=== PATIENT | male | born 1950 | race Caucasian/White ===

== ENCOUNTER 2021-01-19 11:43 | Outpatient (CLI) | payer MEDICARE, OTHER, SELFPAY ==
[2021-01-19 19:39] LABS: Basophils Absolute Auto 0.1 K/mm3 (0.0-0.1); Basophils Percent Auto 0.9 % (0.2-1.2); Eosinophils Absolute Auto 0.4 K/mm3 (0-0.3); Eosinophils Percent Auto 4.8 % (0-4.4); Hematocrit 53.7 % (42.0-52.0); Hemoglobin 18.1 g/dL (14.0-18.0); Immature Granulocyte Absolute 0.03 K/mm3 (0.00-0.031); Immature Granulocyte Percent A 0.3 % (0-0.5); Lymphocytes Absolute Auto 2.26 K/mm3 (0.9-3.2); Lymphocytes Percent Auto 25.7 % (18.3-44.2); Mean Corpuscular HGB Conc 33.7 g/dl (32-36); Mean Corpuscular Hemoglobin 32.1 pg (26-34); Mean Corpuscular Volume 95.2 fl (80-100); Mean Platelet Volume 10.1 fl (7.4-10.4); Monocytes Absolute Auto 1.2 K/mm3 (0.1-0.6); Monocytes Percent Auto 13.2 % (2.6-8.5); Neutrophils Absolute Auto 4.8 K/mm3 (1.3-6.7); Neutrophils Percent Auto 55.1 % (45.5-73.1); Platelet Count Result 290 k/mm3 (150-375); Red Blood Count 5.64 M/mm3 (4.6-6.20); Red Cell Distribution Width 12.9 % (11.5-14.5); White Blood Count 8.8 K/mm3 (4.5-10.0)
[2021-01-19 19:50] LABS: Alanine Aminotransferase 49 U/L (4-50); Albumin Level 4.9 g/dL (3.5-5.1); Alkaline Phosphatase 59 U/L (38-126); Anion Gap 11 mmol/L (8-16); Aspartate Amino Transferase 38 U/L (17-59); Bilirubin,Total 0.7 mg/dL (0.2-1.3); Blood Urea Nitrogen 19 mg/dL (9-20); Calcium 10.7 mg/dL (8.4-10.2); Carbon Dioxide 27 mmol/L (22-30); Chloride 101 mmol/L (98-107); Cholesterol 231 mg/dL (0-200); Estimated Glomerular Filt Rate > 60; Glucose 87 mg/dL (65-110); HDL Direct 42 mg/dL; Potassium 4.5 mmol/L (3.4-5.0); Sodium 139 mmol/L (137-145); Triglycerides 256 mg/dL (<150)
[2021-01-19 20:01] LABS: LDL Cholesterol Direct 144 mg/dL
[2021-01-19 21:58] LABS: Prostate Specific Antigen 1.8 ng/mL (< OR = 4.0)
== END 2021-01-19 11:44 | disposition home or self-care (01) ==
LOC: ANHBWCLAB 11:45
PROVIDERS: PCP Family Medicine; Visit Provider Family Medicine
DX: E78.5 Hyperlipidemia, unspecified (principal); D75.1 Secondary polycythemia; G47.30 Sleep apnea, unspecified; I12.9 Hypertensive chronic kidney disease with stage 1 through stage 4 chronic kidney disease, or unspecified chronic kidney disease; Z12.5 Encounter for screening for malignant neoplasm of prostate; E78.1 Pure hyperglyceridemia
CPT/HCPCS: 36415; 80053; 80061; 84153; 85025; G0103

== ENCOUNTER 2021-02-08 13:51 | Outpatient (CLI) | payer MEDICARE, OTHER, SELFPAY ==
--- NOTE | ~2021-02-08 | US_ITS ---
US arterial ankle brachial ind INDICATION: Peripheral vascular disease. TECHNIQUE: Segmental pressures and plethysmographic and Doppler waveforms of the brachial and lower e xtremity arteries were obtained. COMPARISON: None. FINDINGS: Right and left brachial artery pressures of 158 mm Hg and 150 to mm Hg, respectively, are concordant (normal difference <= 30 mmHg). The right ankle-brachial index (KESHA) is 1 (normal >= 0.9-1.0). The right great toe-brachial index (TB I) is 0.65 (normal >= 0.60). The left KESHA is 0.99. The left TBI is 0.54. IMPRESSION: 1. Mildly diminished left toe brachial index, consistent with peripheral arterial disease. 2: Normal right ankle and toe brachial indices. Reviewed, dictated and finalized at location A. RINARY MICROBIOLOGIST IMPRESSION: 1. Mildly diminished left toe brachial index, consistent with peripheral arteri al disease. 2: Normal right ankle and toe brachial indices.
== END 2021-02-08 13:52 | disposition home or self-care (01) ==
LOC: ANHIMG 13:54
PROVIDERS: PCP Family Medicine; Visit Provider Family Medicine
DX: I73.9 Peripheral vascular disease, unspecified (principal)
CPT/HCPCS: 93922

== ENCOUNTER 2021-07-20 11:42 | Outpatient (CLI) | payer MEDICARE, OTHER, SELFPAY ==
[2021-07-20 19:42] LABS: Basophils Absolute Auto 0.1 K/mm3 (0.0-0.1); Basophils Percent Auto 0.7 % (0.2-1.2); Eosinophils Absolute Auto 0.3 K/mm3 (0-0.3); Eosinophils Percent Auto 3.3 % (0-4.4); Hematocrit 52.8 % (42.0-52.0); Hemoglobin 18.2 g/dL (14.0-18.0); Immature Granulocyte Absolute 0.04 K/mm3 (0.00-0.031); Immature Granulocyte Percent A 0.4 % (0-0.5); Lymphocytes Absolute Auto 2.36 K/mm3 (0.9-3.2); Lymphocytes Percent Auto 24.4 % (18.3-44.2); Mean Corpuscular HGB Conc 34.5 g/dl (32-36); Mean Corpuscular Hemoglobin 31.9 pg (26-34); Mean Corpuscular Volume 92.5 fl (80-100); Mean Platelet Volume 10.3 fl (7.4-10.4); Monocytes Absolute Auto 1.2 K/mm3 (0.1-0.6); Monocytes Percent Auto 12.4 % (2.6-8.5); Neutrophils Absolute Auto 5.7 K/mm3 (1.3-6.7); Neutrophils Percent Auto 58.8 % (45.5-73.1); Platelet Count Result 281 k/mm3 (150-375); Red Blood Count 5.71 M/mm3 (4.6-6.20); Red Cell Distribution Width 12.6 % (11.5-14.5); White Blood Count 9.7 K/mm3 (4.5-10.0)
[2021-07-20 19:58] LABS: Anion Gap 8 mmol/L (8-16); Blood Urea Nitrogen 21 mg/dL (9-20); Carbon Dioxide 26 mmol/L (22-30); Chloride 104 mmol/L (98-107); Estimated Glomerular Filt Rate > 60; Glucose 85 mg/dL (65-110); Potassium 4.3 mmol/L (3.4-5.0); Sodium 138 mmol/L (137-145)
[2021-07-22 11:14] LABS: Erythropoietin (EPO) 6.4 mIU/mL (2.6-18.5)
[2021-07-23 07:33] LABS: Ionized Calcium 5.3 mg/dL (4.8-5.6)
[2021-07-27 14:08] LABS: Parathyroid Hormone Related Pr 13 pg/mL (11-20)
== END 2021-07-20 11:43 | disposition home or self-care (01) ==
LOC: ANHBWCLAB 11:45
PROVIDERS: PCP Family Medicine; Visit Provider Family Medicine
DX: E83.52 Hypercalcemia (principal); R79.89 Other specified abnormal findings of blood chemistry; D75.1 Secondary polycythemia; E78.5 Hyperlipidemia, unspecified
CPT/HCPCS: 36415; 80048; 82306; 82330; 82668; 83519; 85025

== ENCOUNTER 2021-10-26 14:42 | Outpatient (CLI) | payer MEDICARE, OTHER, SELFPAY ==
[2021-10-26 18:35] LABS: Basophils Absolute Auto 0.1 K/mm3 (0.0-0.1); Basophils Percent Auto 0.6 % (0.2-1.2); Eosinophils Absolute Auto 0.3 K/mm3 (0-0.3); Eosinophils Percent Auto 3.4 % (0-4.4); Hematocrit 50.8 % (42.0-52.0); Hemoglobin 16.6 g/dL (14.0-18.0); Immature Granulocyte Absolute 0.04 K/mm3 (0.00-0.031); Immature Granulocyte Percent A 0.5 % (0-0.5); Lymphocytes Absolute Auto 1.88 K/mm3 (0.9-3.2); Lymphocytes Percent Auto 22.4 % (18.3-44.2); Mean Corpuscular HGB Conc 32.7 g/dl (32-36); Mean Corpuscular Volume 94.8 fl (80-100); Mean Platelet Volume 9.9 fl (7.4-10.4); Monocytes Absolute Auto 0.8 K/mm3 (0.1-0.6); Monocytes Percent Auto 9.9 % (2.6-8.5); Neutrophils Absolute Auto 5.3 K/mm3 (1.3-6.7); Neutrophils Percent Auto 63.2 % (45.5-73.1); Platelet Count Result 258 k/mm3 (150-375); Red Blood Count 5.36 M/mm3 (4.6-6.20); Red Cell Distribution Width 12.8 % (11.5-14.5); White Blood Count 8.4 K/mm3 (4.5-10.0)
== END 2021-10-26 14:43 | disposition home or self-care (01) ==
PROVIDERS: PCP Family Medicine; Visit Provider Family Medicine
DX: D75.1 Secondary polycythemia (principal)
CPT/HCPCS: 36415; 85025

== ENCOUNTER 2022-02-19 09:56 | Emergency (ER) | payer MEDICARE, OTHER, SELFPAY ==
[2022-02-19 10:08] VITALS: BP 154/90; PULSE 88; RESP 20; TEMP 36.7; O2SAT 97
--- NOTE | 2022-02-19 10:44 | ED.EYEPROB ---
HPI - Eye Problem General Chief complaint: Eye Problems Stated complaint: Eye Problem Related Data Home Medications Medication Instructions Recorded Confirmed omega-3 fatty acids 500 mg capsule 500 mg DAILY 02/19/22 02/19/22 Allergies Allergy/AdvReac Type Severity Reaction Status Date / Time No Known Allergies Allergy Verified 02/19/22 10:20 Review of Systems Review of Systems: Patient presents with redness to his right eye. Patient states he was exposed to pinkeye by 1 of his grandchildren. Patient states the eye was matted shut this morning and itchy. No injury to eye no vision problems. Patient does not were contacts. Constitutional: Comments: CONSTITUTIONAL: Denies fever, chills, or sweats. EYES: Denies visual changes, redness, or discharge. ENT: Denies rhinorrhea, congestion, sore throat, or otalgia. CARDIOVASCULAR: Denies chest pain, palpitations, or edema. RESPIRATORY: Denies cough or dyspnea. GASTROINTESTINAL: Denies abdominal pain, nausea, vomiting, or diarrhea. GENITOURINARY: Denies dysuria or hematuria. SKIN: Denies rash or itching. MUSCULOSKELETAL: Denies back pain, joint pain, or myalgia. NEUROLOGIC: Denies headache, numbness, or weakness. PSYCHIATRIC: Denies anxiety or depression. [facility] Past Medical History Medical History (Updated 02/19/22 @ 10:50 by ROSENDA Orantes) H/O cataract Surgical History Surgical History (Updated 01/19/21 @ 10:51 by Jp Rush MD) History of back surgery Family History Family History Father Family history of lung cancer Social History Social History Smoking packs per day: 0.5 Smoking cigarettes per day: 10.0 Years smoked: 50 Smoking pack-years: 25.00 Smoking status: Heavy tobacco smoker Second hand tobacco smoke exposure: No Alcohol intake: never Substance use: never Comments At time of signature, agree with nursing past medical, surgical, social and family history. There is no relevant family history pertinent to the presenting complaint Exam Narrative: GENERAL: Well-appearing, well-nourished, and in no acute distress. HEAD: Normocephalic, atraumatic. EYES: PERRLA and EOMI. Conjunctivae with redness and watery in mild drainage to corner of right eye. Consistent with conjunctivitis. ENT: Nares clear, no rhinorrhea or epistaxis. Mucous membranes moist. NECK: Supple. CHEST: Clear to auscultation. No respiratory distress. HEART: Regular rate and rhythm. No murmur heard. Normal peripheral pulses. ABDOMEN: Soft, nontender, nondistended, normal active bowel sounds. EXTREMITIES: Normal range of motion. No edema. SKIN: Warm, dry, no rash. NEURO: No focal deficits. Alert and oriented x3. [place] Coma Scale Eye Opening: Spontaneous 4 [place] Coma Scale Motor: Obeys Commands 6 [place] Coma Scale Verbal: Oriented 5 [place] Coma Scale Total 15 Course Course Level of Care: Express Care Visit Vital Signs Vital signs: Vital Signs Temperature 36.7 C 02/19/22 10:08 Pulse Rate 88 02/19/22 10:08 Respiratory Rate 20 02/19/22 10:08 Blood Pressure 154/90 H 02/19/22 10:08 Pulse Oximetry 97 02/19/22 10:08 Oxygen Delivery Room Air 02/19/22 10:08 Temperature 36.7 C 02/19/22 10:08 Pulse Rate 88 02/19/22 10:08 Respiratory Rate 20 02/19/22 10:08 Blood Pressure 154/90 H 02/19/22 10:08 Pulse Oximetry 97 02/19/22 10:08 Oxygen Delivery Room Air 02/19/22 10:08 Please CHARLOTTE schedule a followup visit with your personal physician for further evaluation and treatment. Including recheck and discussion of your blood pressure. If your symptoms persist, change or worsen significantly before you can contact your personal physician then please, without delay, go to the emergency department for further evaluation Discharge Plan Discharge Clinical Impression: Bacterial conjunctivitis Patient Disposi
== END 2022-02-19 10:58 | disposition home or self-care (01) ==
PROVIDERS: Emergency Provider Nurse Practitioner Family; PCP Family Medicine
DX: H10.9 Unspecified conjunctivitis (principal); F17.219 Nicotine dependence, cigarettes, with unspecified nicotine-induced disorders; H26.9 Unspecified cataract
CPT/HCPCS: 99213; G0463

== ENCOUNTER 2022-04-11 10:38 | Outpatient (CLI) | payer MEDICARE, OTHER, SELFPAY ==
[2022-04-11 21:33] LABS: Basophils Absolute Auto 0.1 K/mm3 (0.0-0.1); Basophils Percent Auto 0.8 % (0.2-1.2); Eosinophils Absolute Auto 0.3 K/mm3 (0-0.3); Eosinophils Percent Auto 3.3 % (0-4.4); Hematocrit 50.3 % (42.0-52.0); Hemoglobin 17.2 g/dL (14.0-18.0); Immature Granulocyte Absolute 0.03 K/mm3 (0.00-0.031); Immature Granulocyte Percent A 0.3 % (0-0.5); Lymphocytes Absolute Auto 2.21 K/mm3 (0.9-3.2); Lymphocytes Percent Auto 25.1 % (18.3-44.2); Mean Corpuscular HGB Conc 34.2 g/dl (32-36); Mean Corpuscular Hemoglobin 31.8 pg (26-34); Mean Platelet Volume 10.2 fl (7.4-10.4); Monocytes Absolute Auto 1.1 K/mm3 (0.1-0.6); Monocytes Percent Auto 12.4 % (2.6-8.5); Neutrophils Absolute Auto 5.1 K/mm3 (1.3-6.7); Neutrophils Percent Auto 58.1 % (45.5-73.1); Platelet Count Result 297 k/mm3 (150-375); Red Blood Count 5.41 M/mm3 (4.6-6.20); Red Cell Distribution Width 12.6 % (11.5-14.5); White Blood Count 8.8 K/mm3 (4.5-10.0)
[2022-04-11 21:34] LABS: Alanine Aminotransferase 56 U/L (6-50); Albumin Level 4.7 g/dL (3.5-5.1); Alkaline Phosphatase 66 U/L (38-126); Anion Gap 8 mmol/L (8-16); Aspartate Amino Transferase 65 U/L (17-59); Bilirubin,Total 0.7 mg/dL (0.2-1.3); Blood Urea Nitrogen 19 mg/dL (9-20); Calcium 10.2 mg/dL (8.4-10.2); Carbon Dioxide 31 mmol/L (22-30); Chloride 102 mmol/L (98-107); Cholesterol 135 mg/dL (0-200); Estimated Glomerular Filt Rate > 60; Glucose 126 mg/dL (65-110); HDL Direct 33 mg/dL; Potassium 4.3 mmol/L (3.4-5.0); Sodium 141 mmol/L (137-145); Triglycerides 292 mg/dL (<150)
[2022-04-11 21:45] LABS: LDL Cholesterol Direct 59 mg/dL
[2022-04-11 22:03] LABS: Prostate Specific Antigen 1.5 ng/mL (< OR = 4.0)
== END 2022-04-11 10:39 | disposition home or self-care (01) ==
PROVIDERS: PCP Family Medicine; Visit Provider Family Medicine
DX: G47.30 Sleep apnea, unspecified (principal); D75.1 Secondary polycythemia; E78.1 Pure hyperglyceridemia; E83.52 Hypercalcemia; R79.89 Other specified abnormal findings of blood chemistry; L57.0 Actinic keratosis; G62.9 Polyneuropathy, unspecified; I12.9 Hypertensive chronic kidney disease with stage 1 through stage 4 chronic kidney disease, or unspecified chronic kidney disease; Z12.5 Encounter for screening for malignant neoplasm of prostate; N18.9 Chronic kidney disease, unspecified
CPT/HCPCS: 36415; 80053; 80061; 84153; 85025; G0103

== ENCOUNTER 2022-10-18 11:07 | Outpatient (CLI) | payer MEDICARE, SELFPAY ==
[2022-10-18 20:15] LABS: Alanine Aminotransferase 58 U/L (6-50); Albumin Level 4.4 g/dL (3.5-5.1); Alkaline Phosphatase 55 U/L (38-126); Anion Gap 6 mmol/L (8-16); Aspartate Amino Transferase 92 U/L (17-59); Bilirubin,Total 0.6 mg/dL (0.2-1.3); Blood Urea Nitrogen 21 mg/dL (9-20); Carbon Dioxide 35 mmol/L (22-30); Chloride 99 mmol/L (98-107); Cholesterol 137 mg/dL (0-200); Estimated Glomerular Filt Rate > 60; Glucose 158 mg/dL (65-110); HDL Direct 32 mg/dL; Potassium 4.3 mmol/L (3.4-5.0); Sodium 140 mmol/L (137-145); Triglycerides 250 mg/dL (<150)
[2022-10-18 20:26] LABS: LDL Cholesterol Direct 61 mg/dL
== END 2022-10-18 11:08 | disposition home or self-care (01) ==
LOC: ANHBWCLAB 11:08
PROVIDERS: PCP Nurse Practitioner Adult Health; Visit Provider Nurse Practitioner Adult Health
DX: R74.01 Elevation of levels of liver transaminase levels (principal); I10 Essential (primary) hypertension
CPT/HCPCS: 36415; 80048; 80061; 80076

== ENCOUNTER 2023-10-24 09:55 | Outpatient (CLI) | payer MEDICARE, OTHER, SELFPAY ==
--- NOTE | ~2023-10-24 | XR_ITS ---
XR hip RT min 2V 10/24/2023 10:18 Indication: Right hip pain Procedure: 2 views right hip Comparison: No prior studies for comparison. Findings: Mild osteoarthritis of the right hip. No fracture or traumatic malalignment. No significant soft tissue abnormality. No foreign bodies. Impression: 1: Mild osteoarthritis of the right hip. Reviewed, dictated and finalized at location B. Impression: 1: Mild osteoarthritis of the right hip.
[2023-10-24 18:40] LABS: Basophils Absolute Auto 0.1 K/mm3 (0.0-0.1); Basophils Percent Auto 0.6 % (0.2-1.2); Eosinophils Absolute Auto 0.4 K/mm3 (0-0.3); Eosinophils Percent Auto 3.7 % (0-4.4); Hemoglobin 17.7 g/dL (14.0-18.0); Immature Granulocyte Absolute 0.04 K/mm3 (0.00-0.031); Immature Granulocyte Percent A 0.4 % (0-0.5); Lymphocytes Absolute Auto 1.91 K/mm3 (0.9-3.2); Lymphocytes Percent Auto 20.4 % (18.3-44.2); Mean Corpuscular HGB Conc 32.8 g/dl (32-36); Mean Corpuscular Hemoglobin 31.7 pg (26-34); Mean Corpuscular Volume 96.6 fl (80-100); Mean Platelet Volume 10.1 fl (7.4-10.4); Monocytes Absolute Auto 1.1 K/mm3 (0.1-0.6); Neutrophils Absolute Auto 5.9 K/mm3 (1.3-6.7); Neutrophils Percent Auto 62.9 % (45.5-73.1); Platelet Count Result 283 k/mm3 (150-375); Red Blood Count 5.59 M/mm3 (4.6-6.20); Red Cell Distribution Width 13.2 % (11.5-14.5); White Blood Count 9.3 K/mm3 (4.5-10.0)
[2023-10-24 19:07] LABS: Alanine Aminotransferase 52 U/L (6-50); Albumin Level 4.9 g/dL (3.5-5.1); Alkaline Phosphatase 59 U/L (38-126); Anion Gap 11 mmol/L (4-12); Aspartate Amino Transferase 65 U/L (17-59); Bilirubin,Total 0.7 mg/dL (0.2-1.3); Blood Urea Nitrogen 22 mg/dL (9-20); Calcium 10.4 mg/dL (8.4-10.2); Carbon Dioxide 32 mmol/L (22-30); Chloride 96 mmol/L (98-107); Cholesterol 135 mg/dL (0-200); Estimated Glomerular Filt Rate > 60; Glucose 114 mg/dL (65-110); HDL Direct 35 mg/dL; Magnesium 2.5 mg/dL (1.6-2.3); Potassium 3.9 mmol/L (3.4-5.0); Sodium 139 mmol/L (137-145); Triglycerides 212 mg/dL (<150)
[2023-10-24 19:18] LABS: LDL Cholesterol Direct 62 mg/dL
[2023-10-24 19:37] LABS: Prostate Specific Antigen 1.8 ng/mL (< OR = 4.0)
[2023-10-24 22:50] LABS: Vitamin D 25 Hydroxy 31.8 ng/mL
== END 2023-10-24 09:56 | disposition home or self-care (01) ==
PROVIDERS: PCP Nurse Practitioner Adult Health; Visit Provider Nurse Practitioner Adult Health
DX: M16.11 Unilateral primary osteoarthritis, right hip (principal); R79.89 Other specified abnormal findings of blood chemistry; I10 Essential (primary) hypertension; Z12.5 Encounter for screening for malignant neoplasm of prostate; Z79.899 Other long term (current) drug therapy
CPT/HCPCS: 36415; 73502; 80053; 80061; 82306; 83735; 84153; 84443; 85025; G0103

== ENCOUNTER 2023-11-01 08:53 | Outpatient (CLI) | payer MEDICARE, OTHER, SELFPAY ==
[2023-11-01 20:34] LABS: Anion Gap 15 mmol/L (4-12); Blood Urea Nitrogen 26 mg/dL (9-20); Calcium 9.8 mg/dL (8.4-10.2); Carbon Dioxide 26 mmol/L (22-30); Chloride 99 mmol/L (98-107); Estimated Glomerular Filt Rate > 60; Glucose 93 mg/dL (65-110); Sodium 140 mmol/L (137-145)
== END 2023-11-01 08:54 | disposition home or self-care (01) ==
PROVIDERS: PCP Nurse Practitioner Adult Health; Visit Provider Nurse Practitioner Adult Health
DX: E83.52 Hypercalcemia (principal)
CPT/HCPCS: 36415; 80048

== ENCOUNTER 2023-12-14 10:24 | Outpatient (CLI) | payer MEDICARE, OTHER, SELFPAY ==
--- NOTE | ~2023-12-14 | CT_ITS ---
EXAMINATION: CT abdomen pelvis wo con DATE: 12/14/2023 10:44 INDICATION: Unspecified abdominal pain TECHNIQUE: Computed tomography (CT) of the abdomen and pelvis was performed without intravenous contr ast. Automated exposure control and iterative reconstruction technique were employed. The dose-length product was 832.37 mGy-cm. COMPARISON: None FINDINGS: Lung bases are clear. Heart size is normal. Atherosclerotic coronary artery calcific lesion. No peric ardial or pleural effusion. There are few calcified gallstones within the normal-appearing gallbladde r. There are few subcentimeter low-attenuation lesions in the left hepatic lobe which in the absence of known malignancy are most consistent with hepatic cysts or hemangiomas. No intra or extra hepatic ductal or ductal dilation. There are few scattered tiny dystrophic pancreatic prior small calcified l esions consistent with sequela of chronic pancreatitis. Spleen, bilateral adrenal glands are normal. Bilateral nephrolithiasis with 2 mm stone at the upper pole the left kidney and a couple punctate, <1 mm stones at the upper pole of the right kidney. No ureteral stones or hydronephrosis. Bladder is no rmal. Prostatomegaly measuring 5.1 x 4.2 cm. Bilateral fat-containing inguinal hernias. There is mode rate scattered colonic diverticulosis with no adjacent comparison to suggest diverticulitis. Small sameera wel and appendix are normal. No free intraperitoneal gas or fluid. No pathologically enlarged abdomin al or pelvic lymphadenopathy. Mild lumbar levocurvature with moderate lumbar and lower thoracic spond ylosis. IMPRESSION: 1. A lithiasis. 2. Nonobstructing bilateral nephrolithiasis. 3. Moderate diverticulosis. 4. Bilateral fat-containing inguinal hernias. 5. Prostatomegaly. Reviewed, dictated and finalized at location B.
== END 2023-12-14 10:25 | disposition home or self-care (01) ==
PROVIDERS: PCP Nurse Practitioner Adult Health; Visit Provider Nurse Practitioner Adult Health
DX: N20.0 Calculus of kidney (principal); K57.30 Diverticulosis of large intestine without perforation or abscess without bleeding; K40.20 Bilateral inguinal hernia, without obstruction or gangrene, not specified as recurrent; N40.0 Benign prostatic hyperplasia without lower urinary tract symptoms
CPT/HCPCS: 36415; 74176; 80053; 82150; 83690; 85027

== ENCOUNTER 2023-12-14 12:10 | Outpatient (CLI) | payer MEDICARE, OTHER, SELFPAY ==
[2023-12-14 19:03] LABS: Hematocrit 53.9 % (42.0-52.0); Hemoglobin 17.9 g/dL (14.0-18.0); Mean Corpuscular HGB Conc 33.2 g/dl (32-36); Mean Corpuscular Hemoglobin 31.9 pg (26-34); Mean Corpuscular Volume 96.1 fl (80-100); Mean Platelet Volume 10.5 fl (7.4-10.4); Platelet Count Result 251 k/mm3 (150-375); Red Blood Count 5.61 M/mm3 (4.6-6.20); Red Cell Distribution Width 13.2 % (11.5-14.5); White Blood Count 9.5 K/mm3 (4.5-10.0)
[2023-12-14 19:24] LABS: Alanine Aminotransferase 55 U/L (6-50); Albumin Level 4.7 g/dL (3.5-5.1); Alkaline Phosphatase 58 U/L (38-126); Amylase 127 U/L (30-110); Anion Gap 10 mmol/L (4-12); Aspartate Amino Transferase 98 U/L (17-59); Bilirubin,Total 0.8 mg/dL (0.2-1.3); Blood Urea Nitrogen 20 mg/dL (9-20); Calcium 10.3 mg/dL (8.4-10.2); Carbon Dioxide 32 mmol/L (22-30); Chloride 100 mmol/L (98-107); Estimated Glomerular Filt Rate > 60; Glucose 79 mg/dL (65-110); Lipase 70 U/L (23-300); Potassium 4.5 mmol/L (3.4-5.0); Sodium 142 mmol/L (137-145)
== END 2023-12-14 12:11 | disposition home or self-care (01) ==
LOC: ANHBWCLAB 12:13
PROVIDERS: PCP Nurse Practitioner Adult Health; Visit Provider Nurse Practitioner Adult Health
DX: R10.9 Unspecified abdominal pain (principal)
CPT/HCPCS: 36415; 80053; 82150; 83690; 85027

== ENCOUNTER 2024-01-08 01:32 | Day surgery (SDC) | payer MEDICARE, OTHER, SELFPAY ==
[2023-12-29 15:28] VITALS: BMI 31.1
[2024-01-08 10:10] VITALS: BP 158/98; PULSE 69; RESP 18; TEMP 36; O2SAT 98; BMI 30.5
--- NOTE | 2024-01-08 10:27 | WPDANESEPPF ---
Anes - Initial Pre Proc Eval Procedure: Operation Date: 01/08/24 11:30 Proposed Procedures p Esophagogastroduodenoscopy - Braxton Freire MD Date/Time: 01/08/24 10:27 Surgeon: Braxton Freire MD Pre Op Diagnosis: epigastric pain, rt upper quadrant pain Patient Data Age: 73 Gender: M Height: 1.78 m Weight: 96.5 kg Last Vital Signs Temp 36.0 C L 01/08/24 10:10 Pulse 69 01/08/24 10:10 Resp 18 01/08/24 10:10 BP 158/98 H 01/08/24 10:10 Pulse Ox 98 01/08/24 10:10 O2 Del Method Room Air 01/08/24 10:10 Allergies Allergy/AdvReac Type Severity Reaction Status Date / Time No Known Allergies Allergy Verified 01/08/24 10:20 Home Medications Medication Instructions Recorded Confirmed Type omega-3 fatty acids 500 mg capsule 500 mg DAILY 02/19/22 01/08/24 History hydrochlorothiazide 25 mg tablet 25 mg PO DAILY #90 tabs 07/25/23 01/08/24 Rx atorvastatin 20 mg tablet 20 mg PO DAILY #90 tabs 10/31/23 01/08/24 Rx carvedilol 6.25 mg tablet (Coreg) 6.25 mg PO Q12H #180 tabs 10/31/23 01/08/24 Rx omeprazole 40 mg capsule,delayed 40 mg PO DAILY 4 weeks #28 caps 12/26/23 01/08/24 Rx release Patient hx anesthesia problems: none Family hx anesthesia problems: none Results Review: All pre-operative results and documents have been reviewed as part of the pre-operative evaluation. [facility] Past Medical History Medical History Chronic pancreatitis Encounter for long-term (current) use of medications H/O cataract Liver lesion Surgical History Surgical History History of back surgery Family History Family History Father Family history of lung cancer Social History Social History Smoking packs per day: 0.5 Smoking cigarettes per day: 10.0 Years smoked: 50 Smoking pack-years: 25.00 Smoking status: Current every day smoker Tobacco type: cigarettes Second hand tobacco smoke exposure: No Alcohol intake: never Substance use: never Substance use type: does not use Lack of Transportation: No Lack of Food: Never True Current Housing: I Have Housing Concerned About Future Housing: No Difficulty Paying Gas/Electric Bills: No Difficulty Paying for Meds: No Currently Unemployed: No Education: Trade/Vocational Certificate Difficulty w/ Childcare or Family Care: No Living arrangements: with family Anes - Eval Final PreProcedure Day of Procedure 01/08/24 10:27 Patient weight: obese Heart: regular rate and rhythm Lungs: clear to auscultation Airway: Mallampati scale class II Neurological: alert and oriented Last oral intake: >/= 8 hours ASA classification: III Emergent: no Anesthetic plan: proceed Anesthesia type and monitoring: general GIVS and standard monitoring Results Review: All pre-operative results and documents have been reviewed as part of the pre-operative evaluation. Informed Consent: The patient's anesthetic plan and its attendant risks and benefits were discussed with the patient/family/POA. Questions were solicited and answers provided to the satisfaction of the patient/family/POA.
[2024-01-08] MEDS: LACTATED RINGERS 1,000 ML 150 ML IV CONT (10:33)
--- NOTE | 2024-01-08 11:22 | PM.IMHP ---
H&P: HPI History of Present Illness Date/Time: 01/08/24 11:22 Chief Complaint: epigastric pain Narrative: this patient has been evaluated for the presence of chronic, dull, ill-defined epigastric pain. There are no other findings explaining abdominal pain based on previous CT scans. He is due for EGD to rule out gastroduodenal pathology. Of note, he has never had an EGD before. Review of Systems Review of Systems: All systems reviewed & are unremarkable except as noted in HPI and below PMFSH Past Medical History Medical History Chronic pancreatitis Encounter for long-term (current) use of medications H/O cataract Liver lesion Surgical History Surgical History History of back surgery Family History Family History Father Family history of lung cancer Social History Social History Smoking packs per day: 0.5 Smoking cigarettes per day: 10.0 Years smoked: 50 Smoking pack-years: 25.00 Smoking status: Current every day smoker Tobacco type: cigarettes Second hand tobacco smoke exposure: No Alcohol intake: never Substance use: never Substance use type: does not use Lack of Transportation: No Lack of Food: Never True Current Housing: I Have Housing Concerned About Future Housing: No Difficulty Paying Gas/Electric Bills: No Difficulty Paying for Meds: No Currently Unemployed: No Education: Trade/Vocational Certificate Difficulty w/ Childcare or Family Care: No Living arrangements: with family Meds Home Medications and Allergies Home Medications Medication Instructions Recorded Confirmed Type omega-3 fatty acids 500 mg capsule 500 mg DAILY 02/19/22 01/08/24 History hydrochlorothiazide 25 mg tablet 25 mg PO DAILY #90 tabs 07/25/23 01/08/24 Rx atorvastatin 20 mg tablet 20 mg PO DAILY #90 tabs 10/31/23 01/08/24 Rx carvedilol 6.25 mg tablet (Coreg) 6.25 mg PO Q12H #180 tabs 10/31/23 01/08/24 Rx omeprazole 40 mg capsule,delayed 40 mg PO DAILY 4 weeks #28 caps 12/26/23 01/08/24 Rx release Allergies Allergy/AdvReac Type Severity Reaction Status Date / Time No Known Allergies Allergy Verified 01/08/24 10:20 Vital Signs Vital Signs - 24 hr 01/08/24 10:10 Temperature 96.8 F L Pulse Rate 69 Respiratory Rate 18 Blood Pressure 158/98 H Pulse Oximetry 98 Oxygen Delivery Room Air Assessment and Plan Assessment and plan (1) Abdominal pain: Code(s): R10.9 - Unspecified abdominal pain Status: Acute Plan Patient deemed a good candidate for EGD, will proceed.
[2024-01-08 11:43] VITALS: BP 102/65; PULSE 69; RESP 19; O2SAT 97
[2024-01-08 11:53] VITALS: BP 111/57; PULSE 72; RESP 25; O2SAT 97
[2024-01-08 12:03] VITALS: BP 114/78; PULSE 62; RESP 16; O2SAT 99
== END 2024-01-08 12:17 | disposition home or self-care (01) ==
PROVIDERS: PCP Nurse Practitioner Adult Health; Referring Provider Nurse Practitioner Family; Visit Provider Internal Medicine Gastroenterology
PROC: 0DJ08ZZ Inspection of Upper Intestinal Tract, Via Natural or Artificial Opening Endoscopic (ICD-10-PCS; CPT 43235; principal; 2024-01-08 11:30)
DX: K29.80 Duodenitis without bleeding (principal); K29.30 Chronic superficial gastritis without bleeding; K86.1 Other chronic pancreatitis; F17.210 Nicotine dependence, cigarettes, uncomplicated; E66.9 Obesity, unspecified; Z68.30 Body mass index [BMI] 30.0-30.9, adult; Z98.890 Other specified postprocedural states; Z98.1 Arthrodesis status; Z80.1 Family history of malignant neoplasm of trachea, bronchus and lung
CPT/HCPCS: 43239; 88305; J2003; J2704; J7120

== ENCOUNTER 2024-01-26 09:57 | Emergency (ER) | payer MEDICARE, OTHER, SELFPAY ==
[2024-01-26 10:14] VITALS: BP 143/92; PULSE 69; RESP 16; TEMP 36.2; O2SAT 98
[2024-01-26 10:32] VITALS: BP 189/97; PULSE 67; RESP 11; O2SAT 99
--- NOTE | 2024-01-26 11:12 | ED.BACK ---
HPI - Back Pain/Injury General Chief Complaint: Back Pain/Injury Stated Complaint: back, left leg pain Time Seen by Provider: 01/26/24 11:10 Source: patient and family () Mode of arrival: ambulatory Limitations: no limitations History of Present Illness HPI Narrative: Patient presents with back pain radiating into his left buttock and left leg to the knee. Pain of 2 weeks duration. No injury or trauma. No paresthesias. This has never happened before. Patient's pain was 10/10 in severity yesterday but states it is currently 3/10. Although he felt better today, his encouraged him to come to the ED. He has been ambulating using crutches to help alleviate the pain and also tried some yoga exercises his friend recommended. He has a history of neuropathy for which he had been prescribed gabapentin previously but had stopped taking it because it made him woozy and tired. However, when the pain started 2 weeks ago he started taking this medication again. Hx cervical spine issues. No bowel or bladder incontinence. No saddle anesthesia. Denies IVDU. He states apprxoimately 2 weeks ago he had some upper abdominal pain/RUQ pain like a muscle ache after doing sit ups. He had an EGD performed and was also diagnosed with gallstones and kidney stone but otherwise he denies any continuing abdominal pain over the past week. Not chronically on steroids and no history of cancer. Related Data Home Medications Medication Instructions Recorded Confirmed omega-3 fatty acids 500 mg capsule 500 mg DAILY 02/19/22 01/08/24 Allergies Allergy/AdvReac Type Severity Reaction Status Date / Time No Known Allergies Allergy Verified 01/26/24 10:32 [facility] Past Medical History Medical History Chronic pancreatitis Encounter for long-term (current) use of medications Gallstones H/O cataract Kidney stone Liver lesion Surgical History Surgical History History of back surgery cervical spine History of esophagogastroduodenoscopy (EGD) January 2024 Family History Family History Father Family history of lung cancer Social History Social History (Updated 01/27/24 @ 09:57 by Anaya Duncan MD) Smoking packs per day: 0.5 Smoking cigarettes per day: 10.0 Years smoked: 50 Smoking pack-years: 25.00 Smoking status: Current every day smoker Tobacco type: cigarettes Second hand tobacco smoke exposure: No Alcohol intake: never Substance use: never Substance use type: does not use Lack of Transportation: No Lack of Food: Never True Current Housing: I Have Housing Concerned About Future Housing: No Difficulty Paying Gas/Electric Bills: No Difficulty Paying for Meds: No Currently Unemployed: No Education: Trade/Vocational Certificate Difficulty w/ Childcare or Family Care: No Living arrangements: with family Additional living arrangements comments: Exam Narrative: GENERAL: Well-appearing, well-nourished, and in no acute distress. HEAD: Normocephalic, atraumatic. EYES: Non injected, non icteric ENT: Nares clear, no rhinorrhea or epistaxis. NECK: Supple. CHEST: Speaking in full sentences. No respiratory distress. HEART: Regular rate and rhythm. . ABDOMEN: Soft, nondistended. EXTREMITIES: Normal range of motion. No lower extremity edema. 5/5 strength with bilateral dosri/plantarflexion, knee flexion/extension, hip flexion, abduction/adduction. Straight leg raise negative bilaterally. BACK: No TTP of thoracic or lumbar cervical spine vertebrae which are midline without bony step offs. No paraspinal tenderness or appreciable spasm. Mild TTP into left buttock. Demonstrates flexion and extension at the waist as well as some rotational movement. SKIN: Warm, dry, no rash. NEURO: No focal deficits. Alert and oriented x3. Symmetric and appropriate bilateral patellar reflexes. Sensation intact and symmetric bilaterally in lower extremities. PSYCH: Normal mood and affect. Pleasant, talkative, engaged in care; jovial. Course Vital Signs Vital signs: Vital Signs Temperature 97.2 F L 01/26/24 10:14 Pulse Rate 69 01/26/24 10:14 Respiratory Rate 16 01/26/24 10:14 Blood Pressure 143/92 H 01/26/24 10:14 Pulse Oximetry 98 01/26/24 10:14 Oxygen Delivery Room Air 01/26/24 10:14 Temperature 97.5 F L 01/26/24 12:42 Pulse Rate 64 01/26/24 12:42 Respiratory Rate 19 01/26/24 12:42 Blood Pressure 141/78 H 01/26/24 12:42 Pulse Oximetry 98 01/26/24 12:42 Oxygen Delivery Room Air 01/26/24 10:14 MDM - Back Pain/Injury MDM Narrative Medical decision making narrative: This is an exceedingly pleasant 73yo male who presents with low back pain radiating into his left leg. In the ED he is afebrile with VS that show mild hypertension. Back has no deformities, external skin changes, or signs of trauma. Curvature is within normal limits. No tenderness is noted on palpation of the spinous processes which are midline. Lumbar paraspinal muscles are not tender under without spasm. Patient demonstrates flexion, extension, and rotation of the lumbar spine. Sensation to the lower extremities is normal bilaterally. Dorsi/plantar flexion is normal bilaterally. Straight leg raise test is negative bilaterally. They do not have any other red flags for fracture, malignancy, infection (e.g. spinal epidural abscess), or aortic/vascular: No trauma, not on chronic steroids, no cancer, no fever, IV drug use, HIV, immunosuppression, abdominal pain, tearing pain, syncope, or urinary symptoms. Given this, will defer further imaging at this time. Patient's symptoms sound classically like sciatia. A [place] tablet had been ordered but patient states his pain was 3/10 and he politely declined. However, upon walking to the bathroom just prior to discharge, he did tell the nurse that the pain was flaring again he would like at this time. Re-ordered. Discharged in stable condition after discussing multimodal pain management strategy and follow up with PCP. Differential Diagnosis Differential diagnosis: Likely lumbar radiculopathy, sciatica and strain of lumbar region Discharge Plan Discharge Clinical Impression: Sciatic pain Patient Disposition: Home, Self-Care Condition: Stable Instructions: Antibiotic Form, Sciatica (ED), Lower Back Exercises (ED) Additional Instructions: As we discussed, use the multimodal pain management strategies to balance rest with maintaining activity/exercises to not exacerbate/worsen pain. Follow up with your primary care physician. Return to the ER if you have increased pain in your back, you develop lower extremity weakness/numbness/paralysis, you have numbness or tingling in your private parts, or you are unable to control your ability to urinate/stool. Prescriptions: New acetaminophen 500 mg capsule 1,000 mg PO Q6H PRN (Reason: pain) Qty: 20 0RF lidocaine 4 % adhesive patch,medicated 1 patch topical DAILY PRN (Reason: pain) Qty: 5 0RF ibuprofen 600 mg tablet 600 mg PO TID PRN (Reason: pain) Qty: 20 0RF methocarbamol 750 mg tablet 750 mg PO HS Qty: 7 0RF No Action Fish Oil 500 mg Capsule 500 mg DAILY hydrochlorothiazide 25 mg tablet 25 mg PO DAILY Qty: 90 3RF carvedilol [Coreg] 6.25 mg tablet 6.25 mg PO Q12H Qty: 180 1RF Rx Instructions: must administer with a meal/food atorvastatin 20 mg tablet 20 mg PO DAILY Qty: 90 1RF Follow-up/Referrals: Marissa Whyte APRN [Primary Care Provider] - Stand Alone Forms: Work/School Release IP Time of Disposition: 11:50
[2024-01-26 11:30] VITALS: BP 129/73; PULSE 66; RESP 12; O2SAT 100
[2024-01-26] MEDS: HYDROcodone/acetaminophen (*CRX) 5-325 MG TABLET 1 TAB PO (12:05)
[2024-01-26 12:06] VITALS: BP 141/78; PULSE 78; RESP 19; O2SAT 99
[2024-01-26 12:42] VITALS: BP 141/78; PULSE 64; RESP 19; TEMP 36.4; O2SAT 98
== END 2024-01-26 12:44 | disposition home or self-care (01) ==
PROVIDERS: Emergency Provider Student in an Organized Health Care Education/Training Program; PCP Nurse Practitioner Adult Health
DX: M54.42 Lumbago with sciatica, left side (principal); K86.1 Other chronic pancreatitis; F17.210 Nicotine dependence, cigarettes, uncomplicated; Z87.442 Personal history of urinary calculi; Z79.899 Other long term (current) drug therapy
CPT/HCPCS: 99283; A9270

== ENCOUNTER 2024-02-07 11:02 | Outpatient (CLI) | payer MEDICARE, OTHER, SELFPAY ==
--- NOTE | ~2024-02-07 | XR_ITS ---
Lumbosacral Spine: AP and lateral views Clinical History: Pain Findings: The normal lordotic curve is maintained. No fracture or subluxation. There is severe degene rative disc narrowing throughout the lumbar spine. There is severe facet arthropathy throughout the l umbar spine. There are extensive anterior marginal osteophytes as well as right lateral osteophytes. The sacroiliac joints are normally outlined. Impression: Severe degenerative spondylosis, as above. Reviewed, dictated and finalized at location M. OGAME DESIGNER Impression: Severe degenerative spondylosis, as above.
== END 2024-02-07 11:03 | disposition home or self-care (01) ==
LOC: ANHBWCIMG 11:04
PROVIDERS: PCP Nurse Practitioner Adult Health; Visit Provider Nurse Practitioner Adult Health
DX: M54.32 Sciatica, left side (principal); M47.896 Other spondylosis, lumbar region
CPT/HCPCS: 72100

== ENCOUNTER 2024-04-30 10:03 | Outpatient (CLI) | payer MEDICARE, OTHER, SELFPAY ==
--- OUTSIDE RECORDS SUMMARY | 2024-04-30 10:55 | XMS_ITS | Clinical Summary ---
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
--- OUTSIDE RECORDS SUMMARY | 2024-04-30 10:55 | XMS_ITS | Clinical Summary ---
Author Organization [facility] Address [address] [place] [address]. [place], [place] [id number] [place] [id number] Care Team Providers Care Carpet Loom Fixer Name Role Phone Marissa Whyte NP Primary Care Provider [phone] Encounters Date Type Department Care Team Description 03/04/2024 Travel from Last 3 Months Social History Tobacco Use Types Packs/Day Years Used Date Smoking Tobacco: Never Assessed Sex and Gender Information Value Date Recorded Sex Assigned at Not on file Legal Sex Male 12:38 PM CDT Gender Identity Not on file Sexual Orientation Not on file Plan of Treatment Health Maintenance Due Date Last Done Comments Colorectal Cancer Screening Colonoscopy (10 Years) 1949 Hepatitis C 11/08/1967 DTaP, Tdap and Td Vaccines ( 1 - Tdap) 1968 Zoster Vaccines (1 of 2) 11/08/1999 Annual Medicare Wellness Visit 2014 Pneumococcal Vaccine: 65+ Years (1 of 1 - PCV) 2014 COVID-19 Vaccine (4 - 2023-2 5 season) 2023 02/28/2021, 06/21/2020, 05/31/2020 Influenza Adult (#1) 2024 RSV Immunization or 60+ Years (1 - 1-dose 75+ series) 2024 Meningococcal B Vaccine Aged Out No l onger eligible based on patient's age to complete this topic Meningococcal Vaccine Aged Out No kj randee eligible based on patient's age to complete this topic RSV Immunizations Under 20 Months Aged Out No longer eligible b ased on patient's age to complete this topic Insurance [facility] [place] [id number] Care Teams Carpet Loom Fixer Relationship Specialty Start Date End Date Marisas Whyte NP [address] [place] [id number] PCP - General NURSE PRACTITIONER 01/12/24
[2024-04-30 19:41] LABS: Basophils Absolute Auto 0.1 K/mm3 (0.0-0.1); Basophils Percent Auto 0.7 % (0.2-1.2); Eosinophils Absolute Auto 0.2 K/mm3 (0-0.3); Eosinophils Percent Auto 2.1 % (0-4.4); Hematocrit 50.7 % (42.0-52.0); Hemoglobin 16.7 g/dL (14.0-18.0); Immature Granulocyte Absolute 0.04 K/mm3 (0.00-0.031); Immature Granulocyte Percent A 0.4 % (0-0.5); Immature Platelet Fraction Pct 6.4 % (0.9-11.2); Lymphocytes Absolute Auto 1.91 K/mm3 (0.9-3.2); Mean Corpuscular HGB Conc 32.9 g/dl (32-36); Mean Corpuscular Hemoglobin 31.9 pg (26-34); Mean Corpuscular Volume 96.8 fl (80-100); Mean Platelet Volume 10.9 fl (7.4-10.4); Monocytes Percent Auto 10.7 % (2.6-8.5); Neutrophils Absolute Auto 6.3 K/mm3 (1.3-6.7); Neutrophils Percent Auto 66.1 % (45.5-73.1); Platelet Count Result 153 k/mm3 (150-375); Red Blood Count 5.24 M/mm3 (4.6-6.20); Red Cell Distribution Width 13.4 % (11.5-14.5); White Blood Count 9.6 K/mm3 (4.5-10.0)
[2024-04-30 20:06] LABS: Alanine Aminotransferase 43 U/L (6-50); Albumin Level 4.4 g/dL (3.5-5.1); Alkaline Phosphatase 61 U/L (38-126); Anion Gap 11 mmol/L (4-12); Aspartate Amino Transferase 54 U/L (17-59); Bilirubin,Total 0.8 mg/dL (0.2-1.3); Blood Urea Nitrogen 19 mg/dL (9-20); Calcium 10.1 mg/dL (8.4-10.2); Carbon Dioxide 28 mmol/L (22-30); Chloride 101 mmol/L (98-107); Cholesterol 129 mg/dL (0-200); Estimated Glomerular Filt Rate > 60; Glucose 98 mg/dL (65-110); HDL Direct 35 mg/dL; Potassium 4.1 mmol/L (3.4-5.0); Sodium 140 mmol/L (137-145); Triglycerides 279 mg/dL (<150)
[2024-04-30 20:17] LABS: LDL Cholesterol Direct 62 mg/dL
[2024-04-30 21:25] LABS: Vitamin D 25 Hydroxy 31.2 ng/mL
== END 2024-04-30 10:04 | disposition home or self-care (01) ==
LOC: ANHBWCLAB 10:05
PROVIDERS: PCP Nurse Practitioner Adult Health; Visit Provider Nurse Practitioner Adult Health
DX: I10 Essential (primary) hypertension (principal); R79.89 Other specified abnormal findings of blood chemistry; Z79.899 Other long term (current) drug therapy
CPT/HCPCS: 36415; 80053; 80061; 82306; 85025; 85055

== ENCOUNTER 2024-10-30 10:44 | Outpatient (CLI) | payer MEDICARE, OTHER, SELFPAY ==
--- OUTSIDE RECORDS SUMMARY | 2024-10-30 11:14 | XMS_ITS | Clinical Summary ---
Author Organization 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
--- OUTSIDE RECORDS SUMMARY | 2024-10-30 11:14 | XMS_ITS | Clinical Summary ---
Author Organization [facility] Address [address] [place] [id number] Care Team Providers Care Lean Coach Name Role Phone Marissa Whyte NP Primary Care Provider [phone] Social History Tobacco Use Types Packs/Day Years [...] Td Vaccines ( 1 - Tdap) 1968 Pneumococcal Vaccine: 50+ Years (1 of 1 - PCV) 11/08/1999 Zoster Vaccines (1 of 2) 11/08/1999 Annual Medicare Wellness Visit 2014 COVID-19 Vaccine (4 - 2023-2 5 season) 2023 02/28/2021, 06/21/2020, 05/31/2020 RSV Immunization or 60+ Years (1 - [...] patient's age to complete this topic Insurance [facility] MEDICARE Care Teams Lean Coach Relationship Specialty Start Date End Date Marissa Whyte NP [address] [place] [address] PCP - General NURSE PRACTITIONER 01/12/24
[2024-10-30 20:04] LABS: Alanine Aminotransferase 45 U/L (6-50); Albumin Level 4.4 g/dL (3.5-5.1); Alkaline Phosphatase 59 U/L (38-126); Anion Gap 8 mmol/L (4-12); Aspartate Amino Transferase 86 U/L (17-59); Bilirubin,Total 0.7 mg/dL (0.2-1.3); Blood Urea Nitrogen 18 mg/dL (9-20); Calcium 10.1 mg/dL (8.4-10.2); Carbon Dioxide 29 mmol/L (22-30); Chloride 101 mmol/L (98-107); Cholesterol 137 mg/dL (0-200); Estimated Glomerular Filt Rate > 60; Glucose 116 mg/dL (65-110); HDL Direct 32 mg/dL; Potassium 4.5 mmol/L (3.4-5.0); Sodium 138 mmol/L (137-145); Total Protein 8.2 g/dL (6.3-8.2); Triglycerides 210 mg/dL (<150)
[2024-10-30 20:40] LABS: Prostate Specific Antigen 2.3 ng/mL (< OR = 4.0)
== END 2024-10-30 10:45 | disposition home or self-care (01) ==
PROVIDERS: PCP Nurse Practitioner Adult Health; Visit Provider Nurse Practitioner Adult Health
DX: I10 Essential (primary) hypertension (principal); Z12.5 Encounter for screening for malignant neoplasm of prostate
CPT/HCPCS: 36415; 80053; 80061; 84153; G0103